=== PATIENT | male | born 1995 | race Caucasian/White ===

== ENCOUNTER 2021-03-01 09:15 | Emergency (ER) | payer MEDICAID ==
[~2021-03-01] VITALS: Ht 165.1 cm; Wt 75.0 kg
[2021-03-01] MEDS ORDERED: IBUP-2029 MT (09:49)
[2021-03-01] MEDS ORDERED: AMOX-494 MT (09:49)
[2021-03-01] MEDS ORDERED: TRAM50TA3 MT (09:49)
[2021-03-01] MEDS ORDERED: CHLO473M2 MT (09:49)
[2021-03-01] MEDS ORDERED: HYDROCODONE/ACETAMINOPHEN 5/325MG TABLET PO ONE (10:00)
[2021-03-01 10:52] VITALS: BP 121/73
== END 2021-03-01 10:53 | disposition home or self-care (01) ==
LOC: ER 09:15
DX: K08.89 Other specified disorders of teeth and supporting structures (principal); Z98.890 Other specified postprocedural states
CPT/HCPCS: 99283